=== PATIENT | female | born 1995 | race Caucasian/White ===

== ENCOUNTER → 2016-12-18 | Outpatient (CLI) | payer BC ==
--- NOTE | 2016-12-18 13:57 | US ---
Right Breast Ultrasound History: Evaluate palpable area in the medial right breast at the 3 o'clock position in a 21-year-old female. Technique: Longitudinal and transverse images were obtained utilizing a 15 MHz transducer. Color Dop pler evaluation was employed for assessment of vascularity. Findings: On physical examination the palpable area is easily identified at the 3 o'clock position 7 cm from the nipple.. Sonographic interrogation demonstrates a well-circumscribed mildly hypoechoic no dule measuring 1.6 x 0.9 cm. The nodule demonstrates posterior acoustic enhancement. There is promine nt fibroglandular tissue also identified in the region. The sonographic appearance is highly suggesti ve of a benign fibroadenoma. 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 Recommendation: Various management options were discussed with the patient, including biopsy, surgica l excision and surveillance. The patient currently favors surveillance, which would be monthly physic al examination with a repeat ultrasound in 12 months. She plans to discuss this with her father, who is a sergeant of officers.. A verbal report was given to the patient. [facility] will send a result letter to the patient.
== END ==
LOC: BMCIMAGING 13:20
PROVIDERS: ATTEND Family Medicine
DX: N63 Unspecified lump in breast (principal)

== ENCOUNTER → 2017-10-15 | Outpatient (CLI) | payer BC ==
[~2017-10-15] MED LIST: BUPIVACAINE 0.5% 10 ML SDV ONE; LIDOCAINE 1% 300 MG/30 ML SDV ONE; THROMBIN (BOVINE) 5,000 UNIT VIAL TP ONE
== END ==
LOC: FIMAGING 07:21
PROVIDERS: ATTEND Family Medicine
PROC: 0HBT3ZX Excision of Right Breast, Percutaneous Approach, Diagnostic (ICD-10-PCS; principal; 2017-10-15)
DX: D24.1 Benign neoplasm of right breast (principal)